=== PATIENT | female | born 1930 | race Caucasian/White ===

== ENCOUNTER 2016-09-26 19:58 | Emergency (ER) | payer MEDICARE ==
[~2016-09-26 19:58] MED LIST: ASPI-630 PO; COLESTID PO; LEVO75TA5 PO; LISI1TAB7 PO; POTA10CA PO
[2016-09-26] MEDS ORDERED: IV NORMAL SALINE 1,000ML 1,000 ML IV ONE (20:15)
[2016-09-26] MEDS ORDERED: ONDANSETRON PF 4 MG/2 ML VIAL. IV ONE (20:30)
[2016-09-26 20:44] LABS: BASO # 0.1 x10^3/uL (0.0-0.2); BASO % 1 % (0-3); EOS % 0 % (0-3); HEMATOCRIT 41.7 % (36.0-47.0); LYMPH # 1.2 x10^3/uL (1.0-4.8); LYMPH % 13 % (24-48); MEAN CORPUSCULAR HEMOGLOBIN 30 pg (25-35); MEAN CORPUSCULAR HGB CONC 34 g/dL (31-37); MEAN CORPUSCULAR VOLUME 91 fL (79-100); MONO # 0.5 x10^3/uL (0.0-1.1); MONO % 6 % (0-9); NEUT # 7.3 x10^3uL (1.8-7.7); NEUT % 80 % (31-73); PLATELET COUNT 303 x10^3/uL (140-400); RED CELL DISTRIBUTION WIDTH 14.1 % (11.5-14.5); WHITE BLOOD COUNT 9.2 x10^3/uL (4.0-11.0)
[2016-09-26 20:52] LABS: ALBUMIN 4.1 g/dL (3.4-5.0); ALBUMIN/GLOBULIN RATIO 1.1 (1.0-1.7); CALCIUM 10.2 mg/dL (8.5-10.1); CREATININE 1.3 mg/dL (0.6-1.0); GFR 38.7; POTASSIUM 3.8 mmol/L (3.5-5.1); TOTAL BILIRUBIN 0.8 mg/dL (0.2-1.0); TOTAL PROTEIN 7.7 g/dL (6.4-8.2)
--- NOTE | 2016-09-26 20:56 | ED.ADGEN ---
Past History Past Medical History: No Pertinent History Past Surgical History: No Surgical History Alcohol Use: None Drug Use: None Adult General Chief Complaint Chief Complaint Nausea and vomiting HPI HPI Patient is a 86-year-old female presents with nausea with vomiting for the past 12 hours. Patient has been able to eat, keep fluids food or medications down. She reports dizziness standing, but denies symptoms or rest. Eyes fever, chills , sweats. Denies headache, change of vision, chest pain, shortness of breath, palpitations. No abdominal pain, constipation, diarrhea, flank pain, urinary frequency urgency. No focal neurologic symptoms. Denies abdominal surgeries. She is accompanied at bedside by her daughter. Patient's PCP is Dr. Waldron. Review of Systems Review of Systems ROS as per HPI. Current Medications Current Medications Current Medications Medications (Trade) Dose Ordered Sig/Val Start Time Stop Time Status Last Admin Dose Admin Ceftriaxone Sodium 1 gm/ Sodium Chloride 50 ml @ 100 mls/hr 1X ONCE 09/26/16 22:30 09/26/16 22:59 UNV Ceftriaxone Sodium (Rocephin) 1 gm STK-MED ONCE 09/26/16 22:30 09/26/16 22:31 DC Ondansetron HCl (Zofran) 4 mg 1X ONCE 09/26/16 20:30 09/26/16 20:31 DC 09/26/16 20:40 4 MG Sodium Chloride 50 ml @ As Directed STK-MED ONCE 09/26/16 22:30 09/26/16 22:31 DC Allergies Allergies Allergies Coded Allergies Type Severity Reaction Last Updated Verified Sulfa (Sulfonamide Antibiotics) Allergy Severe Anaphylaxis 05/17/15 Yes Physical Exam Physical Exam Constitutional: Well developed, well nourished, no acute distress, non-toxic appearance. HENT: Normocephalic, atraumatic, bilateral external ears normal, oropharynx moist, no oral exudates, nose normal. Eyes: PERRL. Neck: Normal range of motion. Cardiovascular:Heart rate regular rhythm, no murmur. Lungs & Thorax: Bilateral breath sounds clear to auscultation. Abdomen: Bowel sounds normal, soft, no distention, increased bowel sounds, no tenderness. Skin: Warm, dry. Back: No tenderness, no CVA tenderness. Extremities: No tenderness. Neurologic: Alert and oriented X 3, normal motor function, normal sensory function, no focal deficits noted. Psychologic: Affect normal, judgement normal, mood normal. Current Patient Data Vital Signs Vital Signs Date Time Temp Pulse Resp B/P (MAP) Pulse Ox O2 Delivery O2 Flow Rate FiO2 09/26/16 20:10 97.6 78 20 96 Room Air Lab Results Laboratory Tests Test 09/26/16 20:28 09/26/16 21:58 White Blood Count 9.2 x10^3/uL (4.0-11.0) Red Blood Count 4.60 x10^6/uL (3.50-5.40) Hemoglobin 14.0 g/dL (12.0-15.5) Hematocrit 41.7 % (36.0-47.0) Mean Corpuscular Volume 91 fL (79-100) Mean Corpuscular Hemoglobin 30 pg (25-35) Mean Corpuscular Hemoglobin Concent 34 g/dL (31-37) Red Cell Distribution Width 14.1 % (11.5-14.5) Platelet Count 303 x10^3/uL (140-400) Neutrophils (%) (Auto) 80 % (31-73) H Lymphocytes (%) (Auto) 13 % (24-48) L Monocytes (%) (Auto) 6 % (0-9) Eosinophils (%) (Auto) 0 % (0-3) Basophils (%) (Auto) 1 % (0-3) Neutrophils # (Auto) 7.3 x10^3uL (1.8-7.7) Lymphocytes # (Auto) 1.2 x10^3/uL (1.0-4.8) Monocytes # (Auto) 0.5 x10^3/uL (0.0-1.1) Eosinophils # (Auto) 0.0 x10^3/uL (0.0-0.7) Basophils # (Auto) 0.1 x10^3/uL (0.0-0.2) Sodium Level 139 mmol/L (136-145) Potassium Level 3.8 mmol/L (3.5-5.1) Chloride Level 100 mmol/L (98-107) Carbon Dioxide Level 29 mmol/L (21-32) Anion Gap 10 (6-14) Blood Urea Nitrogen 19 mg/dL (7-20) Creatinine 1.3 mg/dL (0.6-1.0) H Estimated GFR (Cockcroft-Gault) 38.7 BUN/Creatinine Ratio 15 (6-20) Glucose Level 162 mg/dL (70-99) H Calcium Level 10.2 mg/dL (8.5-10.1) H Total Bilirubin 0.8 mg/dL (0.2-1.0) Aspartate Amino Transferase (AST) 17 U/L (15-37) Alanine Aminotransferase (ALT) 16 U/L (14-59) Alkaline Phosphatase 109 U/L (46-116) Troponin I Quantitative < 0.017 ng/mL (0-0.055) Total Protein 7.7 g/dL (6.4-8.2) Albumin 4.1 g/dL (3.4-5.0) Albumin/Globulin Ratio 1.1 (1.0-1.7) Lipase 127 U/L (73-393) Urine Collection Type Unknown Urine Color Yellow Urine Clarity Hazy Urine pH 7.5 Urine Specific [place] 1.015 Urine Protein Neg (NEG-TRACE) Urine Glucose (UA) Neg mg/dL (NEG) Urine Ketones (Stick) Neg mg/dL (NEG) Urine Blood Trace (NEG) Urine Nitrite Neg (NEG) Urine Bilirubin Neg (NEG) Urine Urobilinogen Dipstick 0.2 mg/dL (0.2 mg/dL) Urine Leukocyte Esterase Large (NEG) Urine RBC 1-2 /HPF (0-2) Urine WBC 20-40 /HPF (0-4) Urine Squamous Epithelial Cells Few /LPF Urine Bacteria Many /HPF (0-FEW) EKG EKG [EKG: Normal sinus rhythm, no acute ST-T wave changes.] Radiology/Procedures Radiology/Procedures [] Course & Med Decision Making Course & Med Decision Making Pertinent Labs and Imaging studies reviewed. (See chart for details) [IV fluids and nausea medication given. Symptoms resolved with treatment. Patient able to tolerate oral intake in the ED. Patient noted to have urinary tract infection, but may be contributing to nausea and vomiting. IV antibiotics given. Will treat for urinary tract infection, nausea vomiting, recommend close PCP follow-up with review of urine culture results. Return precautions reviewed. ] Final Impression Final Impression [1. Nausea and vomiting 2. Urinary tract infection] Problems: Dragon Disclaimer Dragon Disclaimer This electronic medical record was generated, in whole or in part, using a voice recognition dictation system. SARAH WYNNE DO Sep 26, 2016 20:56
[2016-09-26 22:15] LABS: BILIRUBIN,URINE NEG (NEG); CLARITY,URINE HAZY; COLOR,URINE YELLOW; GLUCOSE,URINE NEG (NEG); NITRITE,URINE NEG (NEG); UROBILINOGEN,URINE 0.2 mg/dL (0.2 mg/dL)
[2016-09-26 22:23] LABS: BACTERIA,URINE MANY /HPF (0-FEW); SQUAMOUS EPITHELIAL CELL,UR FEW /LPF; WBC,URINE 20-40 /HPF (0-4)
[2016-09-26] MEDS ORDERED: cefTRIAXone SODIUM 1 GM VIAL IV ONE (22:30)
[2016-09-26] MEDS ORDERED: IV NORMAL SALINE 50ML 50 ML ONE (22:30)
[2016-09-26] MEDS ORDERED: ONDANSETRON 4MG ODT 4TABLET STARTPACK. PO ONE (22:45)
[2016-09-26 23:10] VITALS: BP 125/69
--- NOTE | 2016-09-27 01:24 | EKG ---
[address] [address] Test Date: 2016-09-26 Test Time: 20:44:17 Pat Name: LATONIA TAVAREZ Department: Room: Gender: F Internal Communications Intern: : 1930 Requested By: SARAH WYNNE Order Number: [id number] Reading MD: Measurements Intervals [place] Rate: 72 P: 66 GA: 168 QRS: 25 QRSD: 82 T: 54 QT: 430 QTc: 473 Interpretive Statements SINUS RHYTHM LOW LIMB LEAD VOLTAGE NON SPECIFIC ST DEPRESSION PROLONGED QT RI6.01 Unconfirmed report No previous ECG available for comparison
== END 2016-09-26 23:10 | disposition home or self-care (01) ==
LOC: ER 19:58
DX: N39.0 Urinary tract infection, site not specified (principal); Z88.2 Allergy status to sulfonamides
CPT/HCPCS: 36415; 80053; 81001; 83690; 84484; 85027; 87086; 93005; 96361; 96365; 96375; 99284; J0696; J2405; Q0162; J7030

== ENCOUNTER 2016-10-03 09:37 | Inpatient (IN) | payer MEDICARE ==
[~2016-10-03] VITALS: Ht 167.6 cm; Wt 62.6 kg
[2016-10-03 10:00] VITALS: BP 145/73
[2016-10-03] MEDS ORDERED: ONDANSETRON PF 4 MG/2 ML VIAL. IV PRN (10:00)
[2016-10-03] MEDS: IV NORMAL SALINE 1,000ML 1,000 ML IV SCH ×3 (10:24→19:26)
[2016-10-03 10:34] LABS: BASO # 0.1 x10^3/uL (0.0-0.2); BASO % 1 % (0-3); EOS # 0.2 x10^3/uL (0.0-0.7); EOS % 3 % (0-3); HEMATOCRIT 40.4 % (36.0-47.0); HEMOGLOBIN 13.5 g/dL (12.0-15.5); LYMPH # 1.4 x10^3/uL (1.0-4.8); LYMPH % 15 % (24-48); MEAN CORPUSCULAR HEMOGLOBIN 30 pg (25-35); MEAN CORPUSCULAR HGB CONC 33 g/dL (31-37); MEAN CORPUSCULAR VOLUME 91 fL (79-100); MONO # 1.3 x10^3/uL (0.0-1.1); MONO % 14 % (0-9); NEUT # 6.6 x10^3uL (1.8-7.7); NEUT % 68 % (31-73); PLATELET COUNT 267 x10^3/uL (140-400); RED BLOOD COUNT 4.47 x10^6/uL (3.50-5.40); WHITE BLOOD COUNT 9.7 x10^3/uL (4.0-11.0)
[2016-10-03 10:39] LABS: ALBUMIN 3.6 g/dL (3.4-5.0); CALCIUM 9.3 mg/dL (8.5-10.1); GFR 52.3; MAGNESIUM 1.6 mg/dL (1.8-2.4); POTASSIUM 3.9 mmol/L (3.5-5.1); TOTAL BILIRUBIN 0.5 mg/dL (0.2-1.0); TOTAL PROTEIN 7.2 g/dL (6.4-8.2)
[2016-10-03] MEDS ORDERED: CIPROFLOXACIN 200MG PREMIX 100 ML IV SCH (11:00)
[2016-10-03] MEDS ORDERED: ATOR10TA60 PO (11:07)
[2016-10-03] MEDS ORDERED: LISI-375 PO (11:10)
--- NOTE | 2016-10-03 11:48 | RAD ---
CT study of the abdomen and pelvis without contrast History: Flank pain. Urinary tract infection. Comparison: None available. Technique: Noncontrast helical CT scanning of the abdomen and pelvis was performed. Without contrast, the sensitivity to detect organ pathology and GI tract pathology is decreased. PQRS Compliance Statement: One or more of the following individualized dose reduction techniques were utilized for this examination: 1. Automated exposure control 2. Adjustment of the mA and/or kV according to patient size 3. Use of iterative reconstruction technique Findings: The liver and spleen and pancreas are homogeneous in appearance on this noncontrast study. No extrahepatic biliary ductal dilatation is seen. The gallbladder is normal. No hydronephrosis or hydroureter or urinary tract stone is evident. Urinary bladder wall is smooth. No adrenal mass is evident. Calcified atheromatous disease and tortuosity of the abdominal aorta and iliac arteries is seen. No focal aneurysmal dilatation of the abdominal aorta is seen. There is aneurysmal dilatation of the distal left common iliac artery measuring up to 4.3 cm in greatest caliber. No bulky abdominal or pelvic lymphadenopathy is seen. The uterus is retroflexed. No dominant ovarian cyst or mass is seen. The appendix is normal. The terminal ileum is unremarkable. No obstructive bowel pattern is evident. No free fluid or free air is seen. Colonic diverticulosis is seen most severely involving the sigmoid colon without diverticulitis. No osteolytic process is seen. No lung base consolidation is seen. IMPRESSION: No acute abnormality of the abdomen or pelvis is evident. 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 Diverticulosis without diverticulitis.
[2016-10-03 12:14] LABS: BACTERIA,URINE 0 /HPF (0-FEW); BILIRUBIN,URINE NEG (NEG); CLARITY,URINE CLEAR; COLOR,URINE STRAW; GLUCOSE,URINE NEG (NEG); NITRITE,URINE NEG (NEG); RBC,URINE 0 /HPF (0-2); SQUAMOUS EPITHELIAL CELL,UR FEW /LPF; UROBILINOGEN,URINE 0.2 mg/dL (0.2 mg/dL); WBC,URINE 0 /HPF (0-4)
[2016-10-03 15:00] VITALS: BP 95/58
[2016-10-03] MEDS ORDERED: MAGNESIUM SULFATE 2GM 50 ML IV ONE (17:45)
[2016-10-03 19:13] VITALS: BP 116/62
[2016-10-03] MEDS: POTASSIUM CHLORIDE 10 MEQ CAPSULE.ER. PO SCH (20:12)
[2016-10-03 23:00] VITALS: BP 130/66
[2016-10-04 06:27] LABS: BASO # 0.1 x10^3/uL (0.0-0.2); BASO % 1 % (0-3); EOS # 0.3 x10^3/uL (0.0-0.7); EOS % 6 % (0-3); HEMATOCRIT 34.8 % (36.0-47.0); HEMOGLOBIN 11.6 g/dL (12.0-15.5); LYMPH # 1.6 x10^3/uL (1.0-4.8); LYMPH % 26 % (24-48); MEAN CORPUSCULAR HEMOGLOBIN 30 pg (25-35); MEAN CORPUSCULAR HGB CONC 33 g/dL (31-37); MEAN CORPUSCULAR VOLUME 91 fL (79-100); MONO # 0.8 x10^3/uL (0.0-1.1); MONO % 14 % (0-9); NEUT # 3.3 x10^3uL (1.8-7.7); NEUT % 54 % (31-73); PLATELET COUNT 234 x10^3/uL (140-400); RED BLOOD COUNT 3.83 x10^6/uL (3.50-5.40); RED CELL DISTRIBUTION WIDTH 14.1 % (11.5-14.5); WHITE BLOOD COUNT 6.2 x10^3/uL (4.0-11.0)
[2016-10-04 06:29] LABS: CALCIUM 8.6 mg/dL (8.5-10.1); GFR 52.3; POTASSIUM 4.2 mmol/L (3.5-5.1)
[2016-10-04] MEDS ORDERED: LEVOTHYROXINE 75 MCG TABLET PO SCH (07:00)
[2016-10-04 08:21] VITALS: BP 150/87
[2016-10-04] MEDS: POTASSIUM CHLORIDE 10 MEQ CAPSULE.ER. PO SCH (09:00)
[2016-10-04] MEDS ORDERED: hydroCHLOROthiazide 25 MG TABLET PO SCH (09:00)
[2016-10-04] MEDS ORDERED: ATORVASTATIN CALCIUM 10 MG TABLET. PO SCH (09:00)
[2016-10-04] MEDS ORDERED: LISINOPRIL 20 MG TABLET PO SCH (09:00)
[2016-10-04] MEDS ORDERED: ASPIRIN 81 MG TAB.CHEW PO SCH (09:00)
[2016-10-04 09:29] VITALS: BP 150/87
--- NOTE | 2016-10-04 10:59 | PDOC3 ---
Discharge Summary Visit Information Date of Admission: Oct 03, 2016 Date of Discharge: Oct 04, 2016 Admitting Diagnosis: weakness, weight loss, uti Final Diagnosis #1 weakness, #2 weight loss secondary to medication, #3 UTIresolved, #4 hypothyroidism, #5 hypertension, #6 left common iliac aneurysm 4.3 cm Problems: Brief Hospital Course Allergies Allergies Coded Allergies Type Severity Reaction Last Updated Verified Sulfa (Sulfonamide Antibiotics) Allergy Severe Anaphylaxis 05/17/15 Yes Vital Signs Vital Signs Date Time Temp Pulse Resp B/P (MAP) Pulse Ox O2 Delivery O2 Flow Rate FiO2 10/04/16 09:29 71 150/87 10/04/16 08:21 97.9 20 96 Room Air Lab Results Laboratory Tests Test 10/03/16 10:00 10/03/16 10:13 10/03/16 11:00 10/04/16 05:52 Nasal Screen MRSA (PCR) Negative (Negative) White Blood Count 9.7 x10^3/uL (4.0-11.0) 6.2 x10^3/uL (4.0-11.0) Red Blood Count 4.47 x10^6/uL (3.50-5.40) 3.83 x10^6/uL (3.50-5.40) Hemoglobin 13.5 g/dL (12.0-15.5) 11.6 g/dL (12.0-15.5) Hematocrit 40.4 % (36.0-47.0) 34.8 % (36.0-47.0) Mean Corpuscular Volume 91 fL (79-100) 91 fL (79-100) Mean Corpuscular Hemoglobin 30 pg (25-35) 30 pg (25-35) Mean Corpuscular Hemoglobin Concent 33 g/dL (31-37) 33 g/dL (31-37) Red Cell Distribution Width 14.0 % (11.5-14.5) 14.1 % (11.5-14.5) Platelet Count 267 x10^3/uL (140-400) 234 x10^3/uL (140-400) Neutrophils (%) (Auto) 68 % (31-73) 54 % (31-73) Lymphocytes (%) (Auto) 15 % (24-48) 26 % (24-48) Monocytes (%) (Auto) 14 % (0-9) 14 % (0-9) Eosinophils (%) (Auto) 3 % (0-3) 6 % (0-3) Basophils (%) (Auto) 1 % (0-3) 1 % (0-3) Neutrophils # (Auto) 6.6 x10^3uL (1.8-7.7) 3.3 x10^3uL (1.8-7.7) Lymphocytes # (Auto) 1.4 x10^3/uL (1.0-4.8) 1.6 x10^3/uL (1.0-4.8) Monocytes # (Auto) 1.3 x10^3/uL (0.0-1.1) 0.8 x10^3/uL (0.0-1.1) Eosinophils # (Auto) 0.2 x10^3/uL (0.0-0.7) 0.3 x10^3/uL (0.0-0.7) Basophils # (Auto) 0.1 x10^3/uL (0.0-0.2) 0.1 x10^3/uL (0.0-0.2) Sodium Level 142 mmol/L (136-145) 143 mmol/L (136-145) Potassium Level 3.9 mmol/L (3.5-5.1) 4.2 mmol/L (3.5-5.1) Chloride Level 103 mmol/L (98-107) 106 mmol/L (98-107) Carbon Dioxide Level 32 mmol/L (21-32) 29 mmol/L (21-32) Anion Gap 7 (6-14) 8 (6-14) Blood Urea Nitrogen 14 mg/dL (7-20) 16 mg/dL (7-20) Creatinine 1.0 mg/dL (0.6-1.0) 1.0 mg/dL (0.6-1.0) Estimated GFR (Cockcroft-Gault) 52.3 52.3 BUN/Creatinine Ratio 14 (6-20) Glucose Level 92 mg/dL (70-99) 96 mg/dL (70-99) Lactic Acid Level 1.2 mmol/L (0.4-2.0) Calcium Level 9.3 mg/dL (8.5-10.1) 8.6 mg/dL (8.5-10.1) Magnesium Level 1.6 mg/dL (1.8-2.4) 2.0 mg/dL (1.8-2.4) Total Bilirubin 0.5 mg/dL (0.2-1.0) Aspartate Amino Transf (AST/SGOT) 18 U/L (15-37) Alanine Aminotransferase (ALT/SGPT) 20 U/L (14-59) Alkaline Phosphatase 98 U/L (46-116) Total Protein 7.2 g/dL (6.4-8.2) Albumin 3.6 g/dL (3.4-5.0) Albumin/Globulin Ratio 1.0 (1.0-1.7) Urine Collection Type Void Urine Color Straw Urine Clarity Clear Urine pH 7.0 Urine Specific [place] 1.015 Urine Protein Neg (NEG-TRACE) Urine Glucose (UA) Neg mg/dL (NEG) Urine Ketones (Stick) Neg mg/dL (NEG) Urine Blood Neg (NEG) Urine Nitrite Neg (NEG) Urine Bilirubin Neg (NEG) Urine Urobilinogen Dipstick 0.2 mg/dL (0.2 mg/dL) Urine Leukocyte Esterase Neg (NEG) Urine RBC 0 /HPF (0-2) Urine WBC 0 /HPF (0-4) Urine Squamous Epithelial Cells Few /LPF Urine Bacteria 0 /HPF (0-FEW) Brief Hospital Course Ms. Carrasco is a 86 old femalewho presented with weakness and a 5 pound weight loss over the course of the last several days. She had been treated for UTI that was in was resistant to the initial antibiotic and then she was placed on Cipro 3 days ago. She has had a total of 3 days of Cipro including IV. She was given some IV fluids and IV Cipro. She tolerated this well. And felt well enough on the day of discharge to be discharged. She was found with a CAT scan of the abdomen was done to check for kidney stone and she was having flank pain however an incidental finding was a left common iliac aneurysm of 4.3 cm in size. She appeared to be back to her old self on the day of discharge and was anxious to be discharged. Consult I consulted with Dr. DOS SANTOS regarding continuing with the Cipro and sensory urine was clear hospital we decided not to continue. I also informed him of the aneurysm. Discharge Information Condition at Discharge: Improved Follow Up: As Needed Disposition/Orders: D/C to Home Dischare Medications Current Medications Sodium Chloride 1,000 ml @ 125 mls/hr Q8H IV Last administered on 10/03/16 19 :26; Start 10/03/16 at 09:52 Ondansetron HCl (Zofran) 4 mg PRN Q8HRS PRN IV NAUSEA/VOMITING Last administered on 10/03/16 10:24; Start 10/03/16 at 10:00 Ciprofloxacin Lactate 100 ml @ 100 mls/hr Q12HR IV Last administered on 11:29; Start 10/03/16 at 11:00; Stop 10/03/16 at 19:16; Status DC Magnesium Sulfate 50 ml @ 25 mls/hr 1X ONCE IV Last administered on 10/03/16 17:57; Start 10/03/16 at 17:45; Stop 10/03/16 at 19:44; Status DC Aspirin (Children'S Aspirin) 81 mg DAILY PO Last administered on 10/04/16 09: 29; Start 10/04/16 at 09:00 Atorvastatin Calcium (Lipitor) 10 mg DAILY PO Last administered on 10/04/16 09 :00; Start 10/04/16 at 09:00 Levothyroxine Sodium (Synthroid) 75 mcg DAILY07 PO Last administered on 05:37; Start 10/04/16 at 07:00 Potassium Chloride (Micro-K) 10 meq TID PO Last administered on 10/04/16 09:00 ; Start 10/03/16 at 21:00 Lisinopril (Prinivil) 20 mg DAILY PO Last administered on 10/04/16 09:29; Start 10/04/16 at 09:00 Hydrochlorothiazide (Hydrodiuril) 25 mg DAILY PO Last administered on 09:29; Start 10/04/16 at 09:00 Active Scripts Active Reported Zestoretic 20-25 Mg Tablet (Lisinopril/Hydrochlorothiazide) 1 Each Tablet 1 Tab PO DAILY LAST DOSE GIVEN: DATE: TODAY TIME: AM NEXT DOSE DUE: DATE: TOMORROW TIME: AM Atorvastatin Calcium 10 Mg Tablet 1 Tab PO DAILY LAST DOSE GIVEN: DATE: TODAY TIME: AM NEXT DOSE DUE: DATE: TOMORROW TIME: AM Aspirin 81 Mg Tab.chew 81 Mg PO DAILY LAST DOSE GIVEN: DATE: TIME: AM NEXT DOSE DUE: DATE: ORR TIME: AM Potassium Chloride 10 Meq Capsule.er 10 Meq PO TID LAST DOSE GIVEN: DATE: TIME: AM NEXT DOSE DUE: DATE: TIME: AFTERNOON Levothyroxine Sodium 75 Mcg Tablet 1 Tab PO DAILY LAST DOSE GIVEN: DATE: TIME: AM NEXT DOSE DUE: DATE: TIME: AM Patient Instructions Patient Instuctions Patient instructed to see Dr. Dos Santos who will discuss the plan for the aneurysm. Should she get sick again she is to return. EDGAR GUTIÉRREZ DO Oct 04, 2016 10:59
== END 2016-10-04 09:45 | disposition home or self-care (01) | DRG 690 ==
LOC: ICU 09:39 → 1 SOUTH 10-04 06:18
PROVIDERS: ADMIT Family Medicine; ATTEND Family Medicine
DX: N39.0 Urinary tract infection, site not specified (principal); I72.3 Aneurysm of iliac artery; I10 Essential (primary) hypertension; E03.9 Hypothyroidism, unspecified; R63.4 Abnormal weight loss; Z68.22 Body mass index [BMI] 22.0-22.9, adult; Z88.2 Allergy status to sulfonamides
CPT/HCPCS: 36415; 74176; 80048; 80053; 81001; 83605; 83735; 85027; 87040; 87641; J0744; J2405; J3475; J7030

== ENCOUNTER → 2016-12-14 | Outpatient (CLI) | payer MEDICARE ==
[~2016-12-14] MED LIST changes: +ATOR10TA60 PO; +LISI-375 PO
--- NOTE | 2016-12-14 10:21 | RAD ---
CT abdomen/pelvis without contrast 12/14/2016 at 0931 hours Indication: History of iliac artery aneurysm Comparison: CT abdomen/pelvis 10/03/2016 Technique: Multiple axial CT images of the abdomen and pelvis were obtained without intravenous contrast. Coronal and sagittal reformats are provided. Findings: There is a punctate calcified granuloma in the right middle lobe. No suspicious solid noncalcified pulmonary nodules are identified in the visualized lung bases. Heart size is within normal limits. Three-vessel coronary artery vascular calcifications are present. No pericardial effusion. A simple appearing epicardial cyst is identified measuring 6.6 x 2.5 cm. Evaluation of the solid abdominal viscera is limited by lack of intravenous contrast. Stable appearance of a 5 mm hypodense lesion in the right hepatic lobe favored to represent a simple hepatic cyst. Spleen, bilateral adrenal glands, and pancreas are within normal limits. Gallbladder is present. Abdominal aorta is tortuous with moderate to advanced atherosclerotic calcification. 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 There is ectasia of the infrarenal abdominal aorta measuring up to 2.6 cm in transverse dimension, stable from 10/03/2016. There is a saccular aneurysm arising from the bifurcation of the left common iliac artery measuring 3.9 x 4.0 x 4.6 cm, stable. There is focal ectasia of the right common iliac artery immediately proximal to the bifurcation measuring 15 mm, stable. There are no pathologically enlarged lymph nodes in the abdomen or pelvis. There is no free intraperitoneal air. There is no free fluid within the abdomen or pelvis. Urinary bladder is within normal limits. Calcified leiomyoma noted in the uterus. No significant adnexal masses are identified. Small and large bowel are normal in caliber without adjacent inflammatory changes. Diverticulosis of the sigmoid colon is noted without adjacent inflammatory changes. Normal-appearing appendix is visualized. No suspicious osseous lesions are identified. Impression: 1. 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 Aneurysm measures approximately 3.9 x 4.0 x 4.6 cm, stable. 2. 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 3. Evaluation of vascular structures is limited by lack of intravenous contrast. PQRS Compliance Statement: One or more of the following individualized dose reduction techniques were utilized for this examination: 1. Automated exposure control 2. Adjustment of the mA and/or kV according to patient size 3. Use of iterative reconstruction technique
== END | disposition home or self-care (01) ==
LOC: CT 09:19
PROVIDERS: ATTEND Family Medicine
DX: I72.3 Aneurysm of iliac artery (principal); I77.811 Abdominal aortic ectasia; J84.10 Pulmonary fibrosis, unspecified; I25.10 Atherosclerotic heart disease of native coronary artery without angina pectoris; D25.9 Leiomyoma of uterus, unspecified; K57.30 Diverticulosis of large intestine without perforation or abscess without bleeding; K55.1 Chronic vascular disorders of intestine
CPT/HCPCS: 74176